=== PATIENT | female | born 1965 | race Caucasian/White ===

== ENCOUNTER 2018-12-16 18:33 | Emergency (ER) | payer SELFPAY ==
[~2018-12-16] VITALS: Ht 157.5 cm; Wt 79.5 kg
[2018-12-16 18:54] VITALS: Ht 157.5 cm; Wt 79.5 kg
[2018-12-16] MEDS ORDERED: IBUPROFEN 600 MG TAB PO ONE (21:00)
[2018-12-16] MEDS ORDERED: HYDROCODONE/APAP (5/325) TAB PO ONE (21:00)
--- NOTE | 2018-12-16 21:09 | ERD ---
ER Documentation Chief Complaint Chief Complaint L knee/back pain after slip and fall injury HPI 52-year-old female presents with complaint of left knee pain. States that she was walking when she fell and hit her knee. Denies any numbness or tingles. Denies hitting her head. States the pain is currently 8 out of 10. Pain is worse with ambulation and palpation. She is not ambulatory. Denies any preceding syncope lightheadedness chest pain or any other symptoms. Denies medical problems. Denies allergies. ROS All systems reviewed and are negative except as per history of present illness. Medications Home Meds Active Scripts Ibuprofen* (Motrin*) 600 Mg Tab, 600 MG PO Q6 for pain, #30 TAB Prov:DEBBIE HERNANDEZ 12/16/18 Reported Medications [none] No Conflict Check 12/30/10 Allergies Allergies: Coded Allergies: No Known Drug Allergy (Verified Allergy, Unknown, 10/02/11) PMhx/Soc Medical and Surgical Hx: pt denies Medical Hx History of Surgery: Yes (CHOLECYSTECTOMY) Anesthesia Reaction: No Hx Neurological Disorder: No Hx Respiratory Disorders: No Hx Cardiac Disorders: No Hx Psychiatric Problems: No Hx Miscellaneous Medical Probl: No Hx Alcohol Use: No Hx Substance Use: No Hx Tobacco Use: No Smoking Status: Never smoker FmHx Family History: No diabetes, No coronary disease, No other Physical Exam Vitals Vital Signs Date Temp Pulse Resp B/P (MAP) Pulse Ox O2 O2 Flow FiO2 Time Delivery Rate 12/16/18 98.1 23:04 12/16/18 97.7 82 18 104/66 96 18:54 (79) Physical Exam Const: No acute distress Head: Atraumatic Eyes: Normal Conjunctiva ENT: Normal External Ears, Nose and Mouth. Neck: Full range of motion. No meningismus. Resp: Clear to auscultation bilaterally Cardio: Regular rate and rhythm, no murmurs Abd: Soft, non tender, non distended. Normal bowel sounds Skin: No petechiae or rashes Back: No midline or flank tenderness Ext: Tenderness to palpation over the left knee. Knee is full range of motion. Distal/and sensation pulses are intact. There Is no underlying deformity noted. Compartments are soft and warm. Overlying skin is intact. No pallor or cyanosis. Neur: Awake and alert Psych: Normal Mood and Affect Results 24 hrs Current Medications Medications Dose Sig/Adrianna Start Time Status Last (Trade) Ordered Route PRN Stop Time Admin Dose Reason Admin 1 tab ONCE ONCE 12/16/18 DC 12/16/18 Acetaminophen PO 21:00 12/16/18 21: 21:01 Hydrocodone Bitart ([place] (5/325)) Ibuprofen 600 mg ONCE ONCE 12/16/18 DC 12/16/18 (Motrin) PO 21:00 12/16/18 21:06 21:01 Procedures/MDM DIAGNOSTIC IMAGING REPORT Patient: AILEEN NELSON : 1965 Age: 53 Sex: F MR #: [id number] DOS: 12/16/182057 Ordering MD: DEBBIE HERNANDEZ Location: [facility] Room/Bed: PROCEDURE: CR Left Knee CLINICAL INDICATION: Pain TECHNIQUE: An AP, a tunnel and a lateral view were submitted. COMPARISON: None FINDINGS: Osseous Structures: The osseous elements appear well mineralized and intact. An enthesophyte extends off the anterior superior patella. Joint Spaces: The joint spaces are well maintained. No joint effusion is identified. Soft Tissues: The soft tissues appear unremarkable. IMPRESSION: 1. An enthesophyte extends off the anterior superior patella. 2. Otherwise, unremarkable left knee series. Physician Melia Date Time Electronically viewed and signed by Physician Melia on 12/16/2018 21:58 RH/ CC: DEBBIE HERNANDEZ [id number] MDM: X-rays within normal limits the patient does not have a break. Patient possibly has a knee sprain versus contusion. Patient given ibuprofen for pain. Patient placed in immobilizer and given crutches. I have low suspicion for neurovascular compromise, compartment syndrome, fracture, osteomyelitis, septic joint, or other emergent condition. Patient discharged with strict ER precautions. Patient advised to follow up with PMD. All questions answered at discharge. Departure Diagnosis: Primary Impression: Knee injury Encounter type: initial encounter Laterality: left Qualified Codes: S89.92XA - Unspecified injury of left lower leg, initial encounter Additional Impression: Knee pain Chronicity: acute Laterality: left Qualified Codes: M25.562 - Pain in left knee Condition: Stable Comments Age correction patient is a 53-year-old female DEBBIE HERNANDEZ December 16, 2018 21:09 PHI FOSTER DO December 19, 2018 16:14
[2018-12-16] MEDS ORDERED: IBUP-1542 PO ×2 (21:17→23:00)
== END 2018-12-16 23:04 | disposition home or self-care (01) ==
LOC: FTE 18:33
DX: S89.92XA Unspecified injury of left lower leg, initial encounter (principal); W18.09XA Striking against other object with subsequent fall, initial encounter; Y92.9 Unspecified place or not applicable
CPT/HCPCS: 73562